=== PATIENT | female | born 1980 | race Caucasian/White ===

== ENCOUNTER 2017-01-05 17:07 | Emergency (ER) | payer BC, OTHER | END 2017-01-05 18:00 | disposition home or self-care (01) | LOC: ER 17:07 | DX: L72.3 Sebaceous cyst (principal); F17.210 Nicotine dependence, cigarettes, uncomplicated; Z88.5 Allergy status to narcotic agent; Z91.040 Latex allergy status ==

== ENCOUNTER 2017-04-03 18:48 | Emergency (ER) | payer OTHER | END 2017-04-03 19:54 | disposition home or self-care (01) | LOC: ER 18:48 | DX: L72.3 Sebaceous cyst (principal); R03.0 Elevated blood-pressure reading, without diagnosis of hypertension; F17.210 Nicotine dependence, cigarettes, uncomplicated; Z91.040 Latex allergy status; Z88.5 Allergy status to narcotic agent; Z88.8 Allergy status to other drugs, medicaments and biological substances ==